=== PATIENT | female | born 1950 | race Caucasian/White ===

== ENCOUNTER 2016-12-18 10:55 | Emergency (ER) | payer OTHER ==
[2016-12-18 11:00] VITALS: BP 118/79; PULSE 92; TEMP 97.8; BMI 24.5
--- NOTE | 2016-12-18 11:27 | PDOC ---
History of Present Illness - General Chief Complaint: Sore Throat Stated Complaint: CHILLS, FEVER Time Seen by Provider: 12/18/16 11:14 History Source: Patient - History of Present Illness Initial Comments: 12/18/16 11:58 Pt. is a 66 y/o female with pmh of HTN who presents to [facility] today complaining of three days of cough, sinus pain, and headache. Pt. states that she had sinusitis in the past and this feels very similar to her previous episodes. She also admits to dry nasal membranes, pain to her upper teeth, fever blisters, ear fullness, frequency and urgency. Pt. states that whens she coughs she needs to uriniate. Pt. states she recently traveled to [place]. Pt. denies seasonal allergies, eye pain, vision changes, chest pain, palpitations, and n/v/d. Past History - Past Medical History Allergies/Adverse Reactions: Allergies Allergy/AdvReac Type Severity Reaction Status Date / Time No Known Allergies Allergy Verified 12/18/16 10:57 Home Medications: Ambulatory Orders Albuterol Sulfate Inhaler - [Ventolin HFA Inhaler -] 2 inh PO Q4H #1 inhaler 12/02 Azithromycin [Zithromax 250mg Tablets -] 250 mg PO UTDICT #6 tab 08/22/15 Levothyroxine [Synthroid -] 75 mcg PO DAILY 08/22/15 Mometasone Furoate [Nasonex] 1 inh NS BID #1 spray.inh 08/22/15 Nifedipine [Nifedical Xl] 60 mg PO DAILY 08/22/15 Rosuvastatin Calcium [Crestor] 20 mg NR DAILY 08/22/15 Nitrofurantoin Monohyd/M-Cryst [Macrobid -] 100 mg PO BID #14 capsule 12/18/16 Anemia: Yes (FIBROIDS) GI Disorders: Yes (HEMORROIDS;DIVERTICULOSIS) HTN: Yes Hypercholesterolemia: Yes Thyroid Disease: Yes - Surgical History Abdominal Surgery: No Appendectomy: No Cardiac Surgery: No Cholecystectomy: No Lung Surgery: No Neurologic Surgery: No Orthopedic Surgery: No - Psycho/Social/Smoking Cessation Hx Anxiety: No Suicidal Ideation: No Smoking Status: No Smoking History: Never smoked Have you smoked in the past 12 months: No Number of Cigarettes Smoked Daily: 0 Information on smoking cessation initiated: No Hx Alcohol Use: No Drug/Substance Use Hx: No Substance Use Type: None Hx Substance Use Treatment: No *Physical Exam - Vital Signs Last Vital Signs Temp Pulse Resp BP Pulse Ox 97.8 F 92 H 18 118/79 97 12/18/16 10:58 12/18/16 10:58 12/18/16 10:58 12/18/16 10:58 12/18/16 10:58 - Physical Exam Comments: 12/18/16 12:03 GENERAL: Well developed, well nourished. Awake and alert. No acute distress. HEENT: Normocephalic, atraumatic. PERRLA, EOMI. No conjunctival pallor. Sclera are non- icteric. TTP of maxillary sinuses. Dry nasal membranes. Oropharynx is clear. Resolving cold sores on bottom lip. TM's with serous fluid b/l no redness or bulging. Diminished landmarks with dulled cone of light. NECK: Supple. Full ROM. No JVD. Carotid pulses 2+ and symmetric, without bruits. No thyromegaly. No lymphadenopathy. CARDIOVASCULAR: Regular rate and rhythm. No murmurs, rubs, or gallops. Distal pulses are 2+ and symmetric. PULMONARY: No evidence of respiratory distress. Lungs clear to auscultation bilaterally. No wheezing, rales or rhonchi. SKIN: Warm and dry. Normal capillary refill. No rashes. No jaundice. NEUROLOGICAL: Alert, awake, appropriate. Cranial nerves 2-12 intact. No deficits to light touch and temperature in face, upper extremities and lower extremities. No motor deficits in the in face, upper extremities and lower extremities. Normoreflexic in the upper and lower extremities. Normal speech. Toes are down- going bilaterally. Gait is normal without ataxia. Medical Decision Making - Medical Decision Making 12/18/16 12:13 Pt. is a 66 y/o female with a PMH of htn who presents with three days of sinus pain and cough. VVS. Most likely allergic vs viral sinusitis. Will tell patient to begin allergy medication such as zyrtec and use saline spray to help with nasal dryness. Recommend ibuprofen for pain. Given urinary symptoms will r/o a UTI at this time. Ibuprofen given for pain. Will re-evaluate. 12/18/16 13:08 Urine Micro with 3 WBC. Will treat with macrobid at this time. Pt. states she understands discharge instructions. *DC/Admit/Observation/Transfer Diagnosis at time of Disposition: Sinusitis Qualifiers: Sinusitis location: maxillary Chronicity: acute Recurrence: not specified as recurrent Qualified Code(s): J01.00 - Acute maxillary sinusitis, unspecified UTI (urinary tract infection) Qualifiers: Urinary tract infection type: acute cystitis Hematuria presence: without hematuria Qualified Code(s): N30.00 - Acute cystitis without hematuria - Discharge Dispostion Disposition: HOME Condition at time of disposition: Stable Admit: No - Referrals Referrals: Hiro Renee MD [Primary Care Provider] - - Patient Instructions Printed Discharge Instructions: DI for Urinary Tract Infection (UTI), DI for Sinusitis Additional Instructions: You have a sinus infection. Most sinus infections are viral or allergy in nature and do not require antibiotics. Use saline nasal spray and start taking Claritin or Zyrtec for your symptoms. You may take ibuprofen for pain. You also have a urinary tract infection. You were sent an antibiotic to your pharmacy. Take the full prescription even if you are feeling better. Return to the ED if your symptoms get worse, develop worsening fevers or chills or if there are any new symptoms.
[2016-12-18] MEDS ORDERED: IBUPROFEN 600 MG TABLET (FP) PO ONE ×2 (11:46→11:49)
[2016-12-18 12:20] LABS: URINE APPEARANCE CLEAR; URINE BILIRUBIN NEGATIVE (NEGATIVE); URINE BLOOD NEGATIVE (NEGATIVE); URINE COLOR YELLOW; URINE GLUCOSE (UA) NEGATIVE (NEGATIVE); URINE KETONE NEGATIVE (NEGATIVE); URINE NITRITE NEGATIVE (NEGATIVE); URINE PROTEIN NEGATIVE (NEGATIVE); URINE UROBILINOGEN NEGATIVE E.U./dl (0.2-1.0)
[2016-12-18 12:30] LABS: URINE LEUK ESTERASE 1+ (NEGATIVE)
[2016-12-18 12:56] LABS: URINE HYALINE CAST 1 /lpf; URINE MUCUS MANY; URINE RBC 1 /hpf (0-3); URINE WBC 3 /hpf (3-5)
== END 2016-12-18 13:31 | disposition home or self-care (01) ==
LOC: JERFT 10:55
DX: J01.00 Acute maxillary sinusitis, unspecified (principal); N39.0 Urinary tract infection, site not specified; I10 Essential (primary) hypertension; E78.00 Pure hypercholesterolemia, unspecified; E03.9 Hypothyroidism, unspecified
CPT/HCPCS: 81003; 81015; 99281-25

== ENCOUNTER 2017-02-08 06:07 | Emergency (ER) | payer OTHER ==
[2017-02-08 06:36] VITALS: BMI 23.6
[2017-02-08] MEDS ORDERED: IBUPROFEN 400 MG TABLET (FP) PO ONE ×2 (07:31→07:36)
--- NOTE | 2017-02-08 07:47 | PDOC ---
History of Present Illness - General Chief Complaint: Cold Symptoms Stated Complaint: DIFFICULTY SWALLOWING Time Seen by Provider: 02/08/17 07:19 History Source: Patient - History of Present Illness Timing/Duration: reports: other Associated Symptoms: reports: fever/chills, sore throat. denies: cough, earache , facial pain, nasal congestion, nasal drainage Past History - Past Medical History Allergies/Adverse Reactions: Allergies Allergy/AdvReac Type Severity Reaction Status Date / Time No Known Allergies Allergy Verified 12/18/16 10:57 Home Medications: Ambulatory Orders Levothyroxine [Synthroid -] 75 mcg PO DAILY 08/22/15 Nifedipine [Nifedical Xl] 60 mg PO DAILY 08/22/15 Rosuvastatin Calcium [Crestor] 20 mg NR DAILY 08/22/15 Cephalexin [Keflex] 500 mg PO BID #13 capsule 02/08/17 Ibuprofen [Motrin -] 600 mg PO TID #21 tablet 02/08/17 Anemia: Yes (FIBROIDS) GI Disorders: Yes (HEMORROIDS;DIVERTICULOSIS) HTN: Yes Hypercholesterolemia: Yes Thyroid Disease: Yes (Hypothyroid) - Surgical History Abdominal Surgery: No Appendectomy: No Cardiac Surgery: No Cholecystectomy: No Lung Surgery: No Neurologic Surgery: No Orthopedic Surgery: No - Psycho/Social/Smoking Cessation Hx Anxiety: No Suicidal Ideation: No Smoking Status: No Smoking History: Never smoked Have you smoked in the past 12 months: No Number of Cigarettes Smoked Daily: 0 Information on smoking cessation initiated: No Hx Alcohol Use: No Drug/Substance Use Hx: No Substance Use Type: None Hx Substance Use Treatment: No Review of Systems - Review of Systems Constitutional: Yes: Chills HEENTM: Yes: Throat Pain. No: Ear Pain Respiratory: No: Cough ABD/GI: No: Abdominal cramping : Yes: Frequency. No: Burning, Discharge, Flank Pain, Hematuria Neurological: No: Headache *Physical Exam - Vital Signs Last Vital Signs Temp Pulse Resp BP Pulse Ox 99.7 F H 96 H 20 89/63 95 02/08/17 06:28 02/08/17 06:28 02/08/17 06:28 02/08/17 06:28 02/08/17 06:28 - Physical Exam General Appearance: Yes: Appropriately Dressed. No: Apparent Distress HEENT: positive: Normal ENT Inspection, Normal Voice, TMs Normal, Pharynx Normal. negative: Scleral Icterus (R), Scleral Icterus (L) Neck: positive: Supple Respiratory/Chest: negative: Respiratory Distress Gastrointestinal/Abdominal: positive: Normal Bowel Sounds, Soft. negative: Tender Musculoskeletal: positive: Normal Inspection. negative: CVA Tenderness Integumentary: positive: Dry, Warm Neurologic: positive: Fully Oriented, Alert, Normal Mood/Affect ED Treatment Course - LABORATORY CBC & Chemistry Diagram: 02/08/17 07:40 02/08/17 07:40 Medical Decision Making - Medical Decision Making 02/08/17 07:39 66-year-old female, history of hypertension, hyperlipidemia, hypothyroid, here with multiple complaints including malasie w/ chills with left-sided throat pain with dysphagia 4 days. Denies any cough, ear pain or body aches. No sick contacts. Also complaining of urinary frequency 4 days, without hematuria or flank pain. States symptoms similar to previous UTI. See exam Viral syndrome Low grade temp in ED w/ sig hypotension to 80s/60s (not pt's baseline), exam unremarkable otherwise -labs -IVF -reassess Urinary freq R/o uti, no e/o pyelo -labs/ua 02/08/17 10:38 02/08/17 10:39 Labs unremarkable, Ua w/ 2+ LE, no nit, ucx sent, will tx (no +ucx to review). BP now 117/78 s/p IVF. Pt reports feeling better at this time. Stable for dc w/ abx for presumed uti. Reasons to return d/w pt. PMD f/u encouraged 02/08/17 10:46 *DC/Admit/Observation/Transfer Diagnosis at time of Disposition: Viral syndrome UTI (urinary tract infection) Qualifiers: Urinary tract infection type: acute cystitis Hematuria presence: without hematuria Qualified Code(s): N30.00 - Acute cystitis without hematuria - Discharge Dispostion Disposition: HOME Condition at time of disposition: Improved - Prescriptions Prescriptions: Cephalexin [Keflex] 500 mg PO BID #13 capsule Ibuprofen [Motrin -] 600 mg PO TID #21 tablet - Patient Instructions Printed Discharge Instructions: DI for Viral Syndrome, Urinary Tract Infection Additional Instructions: Take medications as directed and return to ER for worsening of symptoms. Please follow-up with your PMD
[2017-02-08 08:08] LABS: URINE APPEARANCE CLEAR; URINE BILIRUBIN NEGATIVE (NEGATIVE); URINE COLOR DKYELLOW; URINE GLUCOSE (UA) NEGATIVE (NEGATIVE); URINE KETONE NEGATIVE (NEGATIVE); URINE NITRITE NEGATIVE (NEGATIVE); URINE PROTEIN NEGATIVE (NEGATIVE); URINE UROBILINOGEN NEGATIVE E.U./dl (0.2-1.0)
[2017-02-08 08:15] LABS: URINE BLOOD 1+ (NEGATIVE); URINE LEUK ESTERASE 2+ (NEGATIVE)
[2017-02-08 08:17] LABS: URINE HYALINE CAST 22 /lpf; URINE MUCUS MANY; URINE RBC 7 /hpf (0-3); URINE WBC 14 /hpf (3-5)
[2017-02-08 08:21] LABS: ALBUMIN 3.8 g/dl (3.4-5.0); ALK PHOS 75 U/L (45-117); ANION GAP 7 (8-16); BILIRUBIN,TOTAL 0.4 mg/dL (0.2-1.0); CALCIUM 9.1 mg/dL (8.5-10.1); CO2 26 mmol/L (21-32); CREATININE 0.8 mg/dL (0.55-1.02); GLUCOSE,RANDOM 119 mg/dL (74-106); SGOT/AST 44 U/L (15-37); SGPT/ALT 61 U/L (12-78); TOT PROT 7.1 g/dl (6.4-8.2)
[2017-02-08 08:35] LABS: BASOPHIL 0.3 % (0-2.0); EOSINOPHIL 0.5 % (0-4.5); MCH 28.5 pg (25.7-33.7); MCHC 32.5 g/dl (32.0-36.0); MEAN CELL VOLUME 87.6 fl (80-96); MEAN PLT VOLUME 8.4 fl (7.5-11.1); NEUTROPHILS 76.4 % (42.8-82.8); PLATELET COUNT 216 K/MM3 (134-434); RDW 14.5 % (11.6-15.6); WHITE BLOOD COUNT 11.5 K/mm3 (4.0-10.0)
[2017-02-08] MEDS ORDERED: CEPHALEXIN MONOHYDRATE 500 MG CAPSULE (UD) PO ONE (08:41)
[2017-02-08] MEDS ORDERED: SODIUM CHLORIDE 1,000 ML IV STA (08:44)
--- NOTE | 2017-02-08 08:45 | PDOC ---
*Physical Exam - Vital Signs Last Vital Signs Temp Pulse Resp BP Pulse Ox 99.7 F H 92 H 20 98/74 97 02/08/17 06:28 02/08/17 07:30 02/08/17 06:28 02/08/17 07:30 02/08/17 07:30 ED Treatment Course - LABORATORY CBC & Chemistry Diagram: 02/08/17 07:40 02/08/17 07:40 - ADDITIONAL ORDERS Additional order review: Laboratory Results 02/08/17 02/08/17 07:50 07:40 Sodium 139 Potassium 4.4 Chloride 106 Carbon Dioxide 26 Anion Gap 7 L BUN 16 Creatinine 0.8 D Creat Clearance w eGFR > 60 Random Glucose 119 H D Calcium 9.1 Total Bilirubin 0.4 D AST 44 H D ALT 61 D Alkaline Phosphatase 75 Total Protein 7.1 Albumin 3.8 Urine Color Dkyellow Urine Appearance Clear Urine pH 5.0 Urine Protein Negative Urine Glucose (UA) Negative Urine Ketones Negative Urine Blood 1+ H Urine Nitrite Negative Urine Bilirubin Negative Urine Urobilinogen Negative Ur Leukocyte Esterase 2+ H Urine RBC 7 Urine WBC 14 Ur Epithelial Cells Rare Hyaline Casts 22 Urine Mucus Many 02/08/17 07:36 Group A Strep Rapid Antigen - Final Throat 02/08/17 07:40 RBC 4.15 MCV 87.6 MCHC 32.5 RDW 14.5 MPV 8.4 Neutrophils % 76.4 Lymphocytes % 11.3 D Monocytes % 11.5 H D Eosinophils % 0.5 D Basophils % 0.3 - Medications Given in the ED: ED Medications Discontinued Medications Generic Name Dose Route Start Last Admin Trade Name Freq PRN Reason Stop Dose Admin Ibuprofen 800 mg 02/08/17 07:31 02/08/17 07:35 Motrin - PO 02/08/17 07:32 800 mg ONCE ONE Administration Medical Decision Making - Medical Decision Making 02/08/17 08:44 66-year-old female with a history of hypertension who presents emergency department with upper respiratory symptoms and UTI. Patient's presentation is concerning given her low blood pressure which was rechecked and is the same. Will do labs including lactate Will give IV fluids Will check UA and chest x-ray. Will reassess BP improved Pt discharged to home Agree with ALEKS gonzalez *DC/Admit/Observation/Transfer Diagnosis at time of Disposition: Viral syndrome, UTI (urinary tract infection) - Discharge Dispostion Disposition: HOME Condition at time of disposition: Improved - Prescriptions Prescriptions: Cephalexin [Keflex] 500 mg PO BID #13 capsule Ibuprofen [Motrin -] 600 mg PO TID #21 tablet - Referrals Referrals: Hiro Renee MD [Primary Care Provider] - - Patient Instructions Printed Discharge Instructions: Urinary Tract Infection, DI for Viral Syndrome Additional Instructions: Take medications as directed and return to ER for worsening of symptoms. Please follow-up with your PMD
[2017-02-08] MEDS ORDERED: CEPHALEXIN MONOHYDRATE 250 MG CAPSULE (FP) ONE (09:38)
[2017-02-08 11:21] VITALS: BP 115/81; PULSE 72
[2017-02-08 11:27] VITALS: TEMP 98.2
== END 2017-02-08 11:20 | disposition home or self-care (01) ==
LOC: JER 06:07
PROC: 3E0337Z Introduction of Electrolytic and Water Balance Substance into Peripheral Vein, Percutaneous Approach (ICD-10-PCS; principal; 2017-02-08)
DX: N30.00 Acute cystitis without hematuria (principal); B34.9 Viral infection, unspecified; I10 Essential (primary) hypertension; E78.00 Pure hypercholesterolemia, unspecified; E03.9 Hypothyroidism, unspecified
CPT/HCPCS: 36415; 80053; 81003; 81015; 83605; 85025; 87070; 87086; 87430; 96360; 99283-25

== ENCOUNTER 2018-05-05 09:28 | Emergency (ER) | payer OTHER ==
[2018-05-05 09:43] VITALS: BMI 23.8
--- NOTE | 2018-05-05 10:15 | PDOC ---
History of Present Illness - General Chief Complaint: Pain, Acute Stated Complaint: BURNING LEFT SIDE-RIGHT BOTTOM CENTER BACK Time Seen by Provider: 05/05/18 09:50 History Source: Patient - History of Present Illness Timing/Duration: reports: other Quality: reports: severe Abdominal Pain Onset Location: reports: flank Past History - Past Medical History Allergies/Adverse Reactions: Allergies Allergy/AdvReac Type Severity Reaction Status Date / Time No Known Allergies Allergy Verified 05/05/18 09:40 Home Medications: Ambulatory Orders Levothyroxine [Synthroid -] 75 mcg PO DAILY 08/22/15 Nifedipine [Nifedical Xl] 60 mg PO DAILY 08/22/15 Rosuvastatin Calcium [Crestor] 20 mg NR DAILY 08/22/15 Anemia: Yes (FIBROIDS) COPD: No GI Disorders: Yes (HEMORROIDS;DIVERTICULOSIS) HTN: Yes Hypercholesterolemia: Yes Thyroid Disease: Yes (Hypothyroid) - Surgical History Abdominal Surgery: No Appendectomy: No Cardiac Surgery: No Cholecystectomy: No Lung Surgery: No Neurologic Surgery: No Orthopedic Surgery: No - Suicide/Smoking/Psychosocial Hx Smoking Status: No Smoking History: Never smoked Have you smoked in the past 12 months: No Number of Cigarettes Smoked Daily: 0 Hx Alcohol Use: No Drug/Substance Use Hx: No Substance Use Type: None Hx Substance Use Treatment: No Review of Systems - Review of Systems Constitutional: No: Chills, Fever ABD/GI: Yes: Nausea. No: Blood Streaked Bowels, Diarrhea, Rectal Bleeding, Vomiting, Abdominal cramping : Yes: Flank Pain. No: Burning, Dysuria, Hematuria *Physical Exam - Vital Signs Last Vital Signs Temp Pulse Resp BP Pulse Ox 98.6 F 77 16 96/68 99 05/05/18 09:40 05/05/18 09:40 05/05/18 09:40 05/05/18 09:40 05/05/18 09:40 - Physical Exam General Appearance: Yes: Appropriately Dressed. No: Apparent Distress HEENT: positive: Normal Voice Neck: positive: Supple Respiratory/Chest: negative: Respiratory Distress Gastrointestinal/Abdominal: positive: Normal Bowel Sounds, Soft. negative: Tender, Pulsatile Mass Musculoskeletal: negative: CVA Tenderness, Vertebral Tenderness Extremity: positive: Normal Inspection Integumentary: positive: Dry, Warm Neurologic: positive: Fully Oriented, Alert, Normal Mood/Affect ED Treatment Course - LABORATORY CBC & Chemistry Diagram: 09/17/18 10:11 05/05/18 10:11 - RADIOLOGY Radiology Studies Ordered: Category Date Time Status ABDOMEN & PELVIS CT W/O CONTR [CT] Stat CT Scan 05/05/18 10:06 Ordered Medical Decision Making - Medical Decision Making 05/05/18 10:15 67 yo F, h/o HTN, kidney stones, utis, here w/ flank pain. Pt reports "burning" burn to L flank 4 days ago that was intermittent in nature. States pain resolved but started having similar pain to R flank yesterday. + nausea. No vomiting, dysuria, hematuria, abd pain, f/c. States pain may be similar to her prior stone See exam Flank pain R/o stone vs UTI No trauma BP 96/68, similar numbers on prior visits, (unclear if baseline), rest of exam otherwise unremarkable and no abd ttp or pulsate mass to suspect aortic pathology -pain control -labs -UA -CT 05/05/18 10:24 05/05/18 11:44 Labs, UA and CT all unremarkable. Patient is pain resolved with toradol. Rpt BP 111/75. Pain possibly musculoskeletal. Dc to take [id number] medication as needed and follow-up with her doctor *DC/Admit/Observation/Transfer Diagnosis at time of Disposition: Back pain Qualifiers: Back pain location: low back pain Chronicity: acute Back pain laterality: bilateral Sciatica presence: without sciatica Qualified Code(s): M54.5 - Low back pain - Discharge Dispostion Disposition: HOME Condition at time of disposition: Improved - Referrals Referrals: Hiro Renee MD [Primary Care Provider] - - Patient Instructions Printed Discharge Instructions: Low Back Pain Additional Instructions: Your labs, urine and CAT scan were all negative. The cause of your pain is possibly musculoskeletal. Take Tylenol as needed for pain and if pain persists, please follow-up with your PMD for further evaluation - Post Discharge Activity
[2018-05-05 10:24] LABS: BASO % 0.8 % (0-2.0); EOS % 2.5 % (0-4.5); HEMATOCRIT 37.3 % (32.4-45.2); HEMOGLOBIN 12.2 GM/dL (10.7-15.3); LYMPH % 34.5 % (8-40); MCH 28.6 pg (25.7-33.7); MCHC 32.7 g/dl (32.0-36.0); MEAN CELL VOLUME 87.3 fl (80-96); MEAN PLT VOLUME 8.2 fl (7.5-11.1); MONO % 8.4 % (3.8-10.2); NEUT % 53.8 % (42.8-82.8); PLATELET COUNT 237 K/MM3 (134-434); RBC 4.27 M/mm3 (3.60-5.2); WHITE BLOOD COUNT 6.5 K/mm3 (4.0-10.0)
[2018-05-05] MEDS ORDERED: KETOROLAC TROMETHAMINE 30 MG/1 ML VIAL IVPUSH ONE (10:25)
[2018-05-05] MEDS ORDERED: SODIUM CHLORIDE 1,000 ML IV STA (10:25)
[2018-05-05] MEDS ORDERED: KETOROLAC TROMETHAMINE 30 MG/1 ML VIAL ONE (10:33)
[2018-05-05 10:46] LABS: ALBUMIN 4.1 g/dl (3.4-5.0); ALK PHOS 68 U/L (45-117); ANION GAP 8 MMOL/L (8-16); BILIRUBIN,TOTAL 0.4 mg/dL (0.2-1.0); BLOOD UREA NITROGEN 18 mg/dL (7-18); CALCIUM 9.2 mg/dL (8.5-10.1); CHLORIDE 108 mmol/L (98-107); CO2 29 mmol/L (21-32); CREATININE 0.8 mg/dL (0.55-1.3); GLUCOSE,RANDOM 104 mg/dL (74-106); POTASSIUM 4.5 mmol/L (3.5-5.1); SGOT/AST 26 U/L (15-37); SGPT/ALT 36 U/L (13-61); SODIUM 145 mmol/L (136-145); TOT PROT 7.4 g/dl (6.4-8.2)
[2018-05-05 11:04] VITALS: TEMP 97.8
[2018-05-05 11:59] LABS: URINE APPEARANCE CLEAR; URINE BILIRUBIN NEGATIVE (<2.0 mg/dL); URINE COLOR STRAW; URINE GLUCOSE (UA) NEGATIVE (NEGATIVE); URINE KETONE NEGATIVE (NEGATIVE); URINE LEUK ESTERASE NEGATIVE (NEGATIVE); URINE NITRITE NEGATIVE (NEGATIVE); URINE PROTEIN NEGATIVE (NEGATIVE); URINE UROBILINOGEN NEGATIVE mg/dL (0.2-1.0)
[2018-05-05 12:10] VITALS: BP 111/75; PULSE 82
== END 2018-05-05 12:10 | disposition home or self-care (01) ==
LOC: JER 09:28
PROC: 3E0333Z Introduction of Anti-inflammatory into Peripheral Vein, Percutaneous Approach (ICD-10-PCS; principal; 2018-05-05)
PROC: 3E0337Z Introduction of Electrolytic and Water Balance Substance into Peripheral Vein, Percutaneous Approach (ICD-10-PCS; 2018-05-05)
DX: M54.5 Low back pain (principal); I10 Essential (primary) hypertension
CPT/HCPCS: 36415; 74176-TC; 80053; 81003; 85025; 87086; 87186; 96361; 96374; 99282-25; J7030

== ENCOUNTER 2019-02-16 14:33 | Emergency (ER) | payer OTHER ==
--- NOTE | 2019-02-16 14:40 | PDOC ---
Rapid Medical Evaluation Chief Complaint: Cold Symptoms Time Seen by Provider: 02/16/19 14:36 Medical Evaluation: Allergies Allergy/AdvReac Type Severity Reaction Status Date / Time No Known Allergies Allergy Verified 05/05/18 09:40 02/16/19 14:37 I have performed a brief in-person evaluation of this patient. The patient presents with a chief complaint of: coughing - worse with lying, Pertinent physical exam findings: lungs clear,. no CVAT I have ordered the following: CXR, UA The patient will proceed to the ED for further evaluation. 02/16/19 14:37 02/16/19 14:40 Discharge Disposition - Diagnosis Cough - Referrals - Patient Instructions - Post Discharge Activity
[2019-02-16 14:41] VITALS: BP 114/72; TEMP 98.4; BMI 25.4
--- NOTE | 2019-02-16 15:18 | PDOC ---
History of Present Illness - General Chief Complaint: Cold Symptoms Stated Complaint: COUGH/DRY MOUTH Time Seen by Provider: 02/16/19 14:36 History Source: Patient - History of Present Illness Associated Symptoms: reports: cough. denies: chest pain, diaphoresis, fever/ chills, headaches, loss of appetite, nausea/vomiting, rash, shortness of breath , weakness Past History - Travel Traveled outside of the country in the last 30 days: No - Past Medical History Allergies/Adverse Reactions: Allergies Allergy/AdvReac Type Severity Reaction Status Date / Time No Known Allergies Allergy Verified 02/16/19 14:41 Home Medications: Ambulatory Orders Levothyroxine [Synthroid -] 75 mcg PO DAILY 08/22/15 Nifedipine [Nifedical Xl] 60 mg PO DAILY 08/22/15 Rosuvastatin Calcium [Crestor] 20 mg NR DAILY 08/22/15 Amoxicillin/Potassium Clav [Augmentin 875-125 Tablet] 1 each PO BID 10 Days #5 tablet 02/16/19 Benzonatate [Tessalon Pearls -] 100 mg PO TID #21 capsule 02/16/19 Fluticasone Prop 0.05% Nasal [Flonase -] 1 - 2 spray NS BID #1 spray.pump Anemia: Yes (FIBROIDS) COPD: No GI Disorders: Yes (HEMORROIDS;DIVERTICULOSIS) HTN: Yes Hypercholesterolemia: Yes Thyroid Disease: Yes (Hypothyroid) - Surgical History Abdominal Surgery: No Appendectomy: No Cardiac Surgery: No Cholecystectomy: No Lung Surgery: No Neurologic Surgery: No Orthopedic Surgery: No - Suicide/Smoking/Psychosocial Hx Smoking Status: No Smoking History: Never smoked Have you smoked in the past 12 months: No Number of Cigarettes Smoked Daily: 0 Hx Alcohol Use: No Drug/Substance Use Hx: No Substance Use Type: None Hx Substance Use Treatment: No Review of Systems - Review of Systems Constitutional: No: Chills, Fever HEENTM: Yes: Nose Congestion, Other (left sided facial pain). No: Throat Pain Respiratory: Yes: Cough. No: Orthopnea, Shortness of Breath, Wheezing, Productive cough Cardiac (ROS): No: Chest Pain : Yes: Urgency. No: Burning, Dysuria, Discharge, Flank Pain, Pain Musculoskeletal: No: Back Pain Neurological: No: Headache, Numbness, Tingling, Tremors, Weakness *Physical Exam - Vital Signs Last Vital Signs Temp Pulse Resp BP Pulse Ox 98.4 F 105 H 16 114/72 96 02/16/19 14:37 02/16/19 14:37 02/16/19 14:37 02/16/19 14:37 02/16/19 14:37 - Physical Exam General Appearance: Yes: Nourished HEENT: positive: EOMI, DIAMOND, TMs Normal, Pharynx Normal, Nasal Congestion, Sinus Tenderness (+ maxillary sinus tenderness on the left) Respiratory/Chest: positive: Lungs Clear, Normal Breath Sounds Cardiovascular: positive: Regular Rhythm, Regular Rate, S1, S2 Gastrointestinal/Abdominal: positive: Normal Bowel Sounds, Soft Musculoskeletal: positive: Normal Inspection Extremity: positive: Normal Capillary Refill, Normal Inspection, Normal Range of Motion Integumentary: positive: Normal Color Neurologic: positive: pantograph engraver II-XII NML intact, Fully Oriented, Alert, Normal Mood/ Affect, Normal Response, Motor Strength 5/5 Medical Decision Making - Medical Decision Making 02/16/19 15:13 Patient is a 68 years old female with history of hypothyroidism presents with dry cough for 4 days he denies any history of congestive heart failure no shortness of breath denies wheezing chest pain. Patient is also concerned about a urinary tract infection reports she the urgency to urinate is increased during coughing spells. Exam clear lungs, + maxillary sinus tenderness on the left cxr ua with leuks, ucx sent Rx for augmentin sent to pharmacy *DC/Admit/Observation/Transfer Diagnosis at time of Disposition: Sinusitis Qualifiers: Sinusitis location: maxillary Chronicity: acute Recurrence: non-recurrent Qualified Code(s): J01.00 - Acute maxillary sinusitis, unspecified - Discharge Dispostion Disposition: HOME Condition at time of disposition: Stable - Prescriptions Prescriptions: Amoxicillin/Potassium Clav [Augmentin 875-125 Tablet] 1 each PO BID 10 Days #5 tablet Benzonatate [Tessalon Pearls -] 100 mg PO TID #21 capsule Fluticasone Prop 0.05% Nasal [Flonase -] 1 - 2 spray NS BID #1 spray.pump - Referrals Referrals: Hiro Renee MD [Primary Care Provider] - - Patient Instructions Printed Discharge Instructions: Urinary Tract Infection, Sinusitis Additional Instructions: Your preliminary xray read was negative for pneumonia Your urine test was abnormal which may indicate a possible UTI, a urinary culture was sent for further analysis you will be contacted if you need additional antibiotics increase fluids take medication as prescribed Return to the ER if worsening symptoms occurs. - Post Discharge Activity
[2019-02-16 15:28] LABS: HYALINE CASTS 6 /lpf (0-8); URINE APPEARANCE CLEAR; URINE BACTERIA 30.1 /hpf (NEGATIVE); URINE BILIRUBIN NEGATIVE (NEGATIVE); URINE COLOR YELLOW; URINE GLUCOSE (UA) NEGATIVE (NEGATIVE); URINE KETONE TRACE (NEGATIVE); URINE LEUK ESTERASE 2+ (NEGATIVE); URINE NITRITE NEGATIVE (NEGATIVE); URINE PROTEIN NEGATIVE (NEGATIVE); URINE RBC 3 /hpf (0-4); URINE WBC 8 /hpf (0-5)
[2019-02-16 15:58] VITALS: PULSE 82
== END 2019-02-16 15:58 | disposition home or self-care (01) ==
LOC: JERFT 14:33
DX: J01.00 Acute maxillary sinusitis, unspecified (principal); I10 Essential (primary) hypertension; E78.00 Pure hypercholesterolemia, unspecified; E03.9 Hypothyroidism, unspecified; Z87.19 Personal history of other diseases of the digestive system
CPT/HCPCS: 71046-TC-FY; 81003; 87086; 99281-25

== ENCOUNTER 2024-08-17 13:50 | Emergency (ER) | payer OTHER ==
[2024-08-17 14:00] VITALS: BMI 25.4
[2024-08-17] MEDS ORDERED: MECLIZINE HCL 25 MG TABLET (FP) ONE (16:52)
[2024-08-17 16:58] LABS: BASO % 0.5 % (0-2.0); EOS % 1.6 % (0-4.5); HEMATOCRIT 38.2 % (32.4-45.2); LYMPH % 26.5 % (8-40); MCH 29.3 pg (25.7-33.7); MEAN CELL VOLUME 86.1 fl (80-96); MEAN PLT VOLUME 7.7 fl (7.5-11.1); MONO % 5.7 % (3.8-10.2); NEUT % 65.7 % (42.8-82.8); PLATELET COUNT 262 10^3/uL (134-434); RBC 4.43 M/mm3 (3.60-5.2); RDW 14.5 % (11.6-15.6); WHITE BLOOD COUNT 6.8 K/mm3 (4.0-10.0)
[2024-08-17] MEDS: MECLIZINE HCL 25 MG TABLET (FP) PO ONE (17:00)
[2024-08-17 17:21] LABS: POTASSIUM 4.7 mmol/L (3.5-5.1)
[2024-08-17 17:23] LABS: CALCIUM 9.4 mg/dL (8.5-10.1)
[2024-08-17 17:24] LABS: BLOOD UREA NITROGEN 13.2 mg/dL (7-18)
[2024-08-17 17:27] LABS: CREATININE 0.7 mg/dL (0.55-1.3)
[2024-08-17 17:31] LABS: BILIRUBIN,TOTAL 0.4 mg/dL (0.2-1)
[2024-08-17 19:03] VITALS: BP 160/90; PULSE 74; RESP 14; TEMP 98.4
== END 2024-08-17 19:10 | disposition home or self-care (01) ==
LOC: JER 13:50
DX: H81.11 Benign paroxysmal vertigo, right ear (principal); R11.0 Nausea; R42 Dizziness and giddiness; Z20.822 Contact with and (suspected) exposure to COVID-19
CPT/HCPCS: 0241U-QW; 36415; 70450-TC; 80053; 85025; 93005; 93010; 99285-25

== ENCOUNTER 2024-08-20 11:22 | Emergency (ER) | payer OTHER ==
[2024-08-20 11:28] VITALS: RESP 17; TEMP 97.9; BMI 24.0
[2024-08-20] MEDS ORDERED: MECLIZINE HCL 25 MG TABLET (FP) ONE (13:13)
[2024-08-20] MEDS ORDERED: ACETAMINOPHEN INJECTION 100 ML ONE (13:13)
[2024-08-20] MEDS: ACETAMINOPHEN 1000 MG/100 ML BAG IVPB ONE (13:22)
[2024-08-20] MEDS: SODIUM CHLORIDE 0.9% 500 ML INFUS.BAG IV ONE (13:22)
[2024-08-20] MEDS: MECLIZINE HCL 25 MG TABLET (FP) PO ONE (13:22)
[2024-08-20 13:24] LABS: BASO % 0.5 % (0-2.0); EOS % 1.8 % (0-4.5); HEMATOCRIT 41.7 % (32.4-45.2); HEMOGLOBIN 13.6 GM/dL (10.7-15.3); MCH 28.6 pg (25.7-33.7); MCHC 32.6 g/dl (32.0-36.0); MEAN CELL VOLUME 87.8 fl (80-96); MEAN PLT VOLUME 7.7 fl (7.5-11.1); MONO % 6.9 % (3.8-10.2); NEUT % 63.8 % (42.8-82.8); PLATELET COUNT 274 10^3/uL (134-434); RBC 4.75 M/mm3 (3.60-5.2); RDW 14.9 % (11.6-15.6); WHITE BLOOD COUNT 6.2 K/mm3 (4.0-10.0)
[2024-08-20 13:43] LABS: CALCIUM 9.5 mg/dL (8.5-10.1); POTASSIUM 4.2 mmol/L (3.5-5.1)
[2024-08-20 13:44] LABS: BLOOD UREA NITROGEN 12.3 mg/dL (7-18); MAGNESIUM 2.5 mg/dL (1.8-2.4)
[2024-08-20 13:47] LABS: CREATININE 0.7 mg/dL (0.55-1.3); PHOSPHOROUS 3.6 mg/dL (2.5-4.9)
[2024-08-20 13:49] LABS: BILIRUBIN,TOTAL 0.4 mg/dL (0.2-1); TOT PROT 7.2 g/dl (6.4-8.2)
[2024-08-20] MEDS ORDERED: amLODIPine BESYLATE 5 MG TABLET (FP) ONE (16:43)
[2024-08-20] MEDS: amLODIPine BESYLATE 5 MG TABLET (FP) PO ONE (16:46)
[2024-08-20 17:29] VITALS: BP 164/82; PULSE 72
== END 2024-08-20 17:50 | disposition home or self-care (01) ==
LOC: JER 11:22
PROC: 3E033NZ Introduction of Analgesics, Hypnotics, Sedatives into Peripheral Vein, Percutaneous Approach (ICD-10-PCS; principal; 2024-08-20)
DX: R42 Dizziness and giddiness (principal); I10 Essential (primary) hypertension; Z20.822 Contact with and (suspected) exposure to COVID-19
CPT/HCPCS: 0241U-QW; 36415; 70551-TC; 80053; 83735; 84100; 84484; 85025; 93005; 93010; 99285-25; J0131